=== PATIENT | male | born 1975 | race Caucasian/White ===

== ENCOUNTER 2018-10-30 10:52 | Emergency (ER) | payer SELFPAY ==
[~2018-10-30] VITALS: Ht 177.8 cm; Wt 63.6 kg
[2018-10-30 11:10] VITALS: Ht 177.8 cm; Wt 63.6 kg
[2018-10-30 14:00] VITALS: BP 148/90
== END 2018-10-30 14:00 | disposition other institution (70) ==
LOC: D.ER 10:52
DX: S05.01XA Injury of conjunctiva and corneal abrasion without foreign body, right eye, initial encounter (principal); X58.XXXA Exposure to other specified factors, initial encounter; Y93.89 Activity, other specified; Y92.89 Other specified places as the place of occurrence of the external cause; F17.200 Nicotine dependence, unspecified, uncomplicated

== ENCOUNTER 2018-11-16 17:26 | Emergency (ER) | payer SELFPAY ==
[~2018-11-16] VITALS: Ht 177.8 cm; Wt 63.6 kg
[2018-11-16 18:07] VITALS: BP 139/91; Ht 177.8 cm; Wt 63.6 kg
== END 2018-11-16 20:06 | disposition left against medical advice (07) ==
LOC: D.ER 17:26
DX: S69.91XA Unspecified injury of right wrist, hand and finger(s), initial encounter (principal); W22.8XXA Striking against or struck by other objects, initial encounter; Y93.89 Activity, other specified; Y92.89 Other specified places as the place of occurrence of the external cause